=== PATIENT | male | born 1975 | race Caucasian/White ===

== ENCOUNTER → 2018-01-21 | Outpatient (REF) | payer BC | LOC: M LAB REF 12:58 | DX: N39.0 Urinary tract infection, site not specified (principal) ==

== ENCOUNTER → 2018-03-27 | Outpatient (REF) | payer BC | LOC: M LAB REF 15:31 | PROVIDERS: ATTEND Physician Assistant | DX: N39.0 Urinary tract infection, site not specified (principal) ==